=== PATIENT | male | born 1950 | race Caucasian/White ===

== ENCOUNTER → 2019-11-08 11:20 | Outpatient (CLI) | payer MEDICARE, SELFPAY ==
--- NOTE | ~2019-11-08 | US_ITS ---
US thyroid INDICATION: History of thyroid cancer status post thyroidectomy TECHNIQUE: Real-time sonographic images of the thyroid gland were obtained. COMPARISON: No prior studies for comparison. FINDINGS: The right and left thyroid lobes are surgically absent. No abnormal masses or fluid collect ions are identified in the thyroid bed. IMPRESSION: 1. Unremarkable ultrasound of the thyroid bed post thyroidectomy. No residual/recurrent masses. Reviewed, dictated and finalized at location A. 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 Unremarkable ultrasound of the thyroid bed post thyroidectomy. No residual/ recurrent masses.
== END ==
PROVIDERS: PCP Internal Medicine; Visit Provider Internal Medicine Endocrinology, Diabetes & Metabolism
DX: Z85.850 Personal history of malignant neoplasm of thyroid (principal)
CPT/HCPCS: 76536

== ENCOUNTER → 2020-08-03 09:21 | Outpatient (CLI) | payer MEDICARE, SELFPAY ==
--- NOTE | ~2020-08-03 | US_ITS ---
EXAMINATION: US scrotum doppler EXAM DATE: 08/03/2020 10:06 INDICATION: Male hypogonadism . TECHNIQUE: Multiple grayscale and Doppler images of the testicles and scrotum were obtained bilateral ly. There is no prior study for comparison. FINDINGS: Right testicle measures 4.3 x 2.2 x 3.2 cm and is morphologically normal. Low resistance Doppler kenyatta w confirmed. Small epididymal cyst. Trace hydrocele. Left testicle measures 4.1 x 2.1 x 2.9 cm and is morphologically normal. Low resistance Doppler flow confirmed. Small epididymal cysts. Trace hydrocele. IMPRESSION: 1. Trace bilateral hydroceles. Reviewed, dictated and finalized at location A. 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
--- NOTE | ~2020-08-03 | US_ITS ---
EXAMINATION: US right upper quadrant EXAM DATE: 08/03/2020 10:06 INDICATION: Hyperbilirubinemia. TECHNIQUE: Multiple grayscale and Doppler images of the abdomen right upper quadrant were obtained (wilmer y a technologist who performed the scan) and subsequently reviewed. There is no prior study for coretta obrien. FINDINGS: The pancreatic head and body are normal in appearance. The pancreatic tail is not visualized. The l iver has normal echogenicity and contour. There are no focal liver lesions identified. There is no evidence of intrahepatic biliary duct dilation. Portal venous flow was seen in the hepatopedal, nor mal direction and has normal Doppler waveform. No right-sided hydronephrosis. Common bile duct measures 4 mm, which is normal. The gallbladder wall is normal in thickness, with ex pected amount of distention. No sonographic evidence of pericholecystic fluid. There is no cholelit hiases. Technologist performing exam reports patient did not demonstrate sonographic Luna's sign. Please note that this sign is less reliable in patients who have received pain medication. IMPRESSION: 1. Unremarkable abdominal ultrasound exam. Reviewed, dictated and finalized at location A. 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
== END ==
PROVIDERS: PCP Internal Medicine; Visit Provider Internal Medicine Endocrinology, Diabetes & Metabolism
DX: E80.6 Other disorders of bilirubin metabolism (principal); E29.1 Testicular hypofunction; N43.3 Hydrocele, unspecified; N50.3 Cyst of epididymis
CPT/HCPCS: 76705; 76870; 93976

== ENCOUNTER → 2021-01-26 15:43 | Outpatient (CLI) | payer MEDICARE, SELFPAY ==
--- NOTE | ~2021-01-26 | US_ITS ---
US thyroid 01/26/2021 15:55 Indication: Postop hypothyroidism Procedure: High-resolution ultrasound of the thyroid bed Comparison: 11/08/2019 Findings: There is normal heterogeneous soft tissue in the thyroid fossa without discrete mass or flu id collection. Impression: 1: Normal ultrasound of the thyroid bed without discrete mass. Reviewed, dictated and finalized at location A. Impression: 1: Normal ultrasound of the thyroid bed without discrete mass.
== END ==
PROVIDERS: PCP Internal Medicine; Visit Provider Internal Medicine Endocrinology, Diabetes & Metabolism
DX: E89.0 Postprocedural hypothyroidism (principal)
CPT/HCPCS: 76536

== ENCOUNTER 2022-04-18 01:29 | Day surgery (SDC) | payer MEDICARE, SELFPAY ==
[2022-03-31 09:10] VITALS: BMI 33.5
[2022-04-18 07:13] VITALS: BP 144/84; PULSE 70; RESP 20; TEMP 36.3; O2SAT 98
--- NOTE | 2022-04-18 07:19 | PM.IMHP ---
H&P: HPI History of Present Illness Date/Time: 04/18/22 07:19 Chief Complaint: History of colon polyps. Narrative: This is a 71-year-old white male patient presents for screening colonoscopy. Patient has a history of prior colon polyps on several occasions. Most recent colonoscopy with polypectomy 2015. Patient presents today for follow-up exam. He reports his current weight appetite bowel movements are normal. He denies abdominal pain. Patient has had no bleeding. Family history is noncontributory. Review of Systems Review of Systems: Review of systems noncontributory. [facility] Past Medical History Medical History Pure hypercholesterolemia Family History Family History Mother Patient's mother is Family history of diabetes mellitus in first degree relative Father Patient's father is Sibling Patient's sister is Other Family history of cardiovascular disease Family history of malignant neoplasm Social History Social History Smoking packs per day: 1 Smoking cigarettes per day: 20.0 Years smoked: 5 Smoking pack-years: 5.00 Smoking status: Former smoker Tobacco type: cigarettes Second hand tobacco smoke exposure: No Smoking end date: 09/03/71 Alcohol intake: current Alcohol use details: rare Substance use: never Substance use type: does not use Living arrangements: with family Spiritual care concerns: No Meds Home Medications and Allergies Home Medications Medication Instructions Recorded Confirmed Type aspirin 81 mg tablet,delayed 81 mg PO DAILY 08/07/19 03/31/22 History release (Adult Low Dose Aspirin) atorvastatin 80 mg tablet 80 mg PO DAILY 08/07/19 03/31/22 History cetirizine 10 mg tablet (Zyrtec) 5 mg PO DAILY PRN Sinus Symptoms 08/07/19 03/31/22 History ferrous sulfate 142 mg (45 mg 142 mg PO DAILY 08/07/19 03/31/22 History iron) tablet,extended release (Slow Fe) levetiracetam 500 mg tablet 500 mg PO Q12H 08/07/19 04/18/22 History (Keppra) amlodipine 10 mg tablet 10 mg PO DAILY 08/11/19 03/31/22 History testosterone 1.62 % (40.5 mg/2.5 2 packet topical DAILY 08/25/20 03/31/22 History gram) transdermal gel packet metformin 500 mg tablet,extended 500 mg PO DAILY 02/21/21 03/31/22 History release 24 hr levothyroxine 200 mcg tablet 200 mcg PO DAILY #90 tabs 08/24/21 04/18/22 Rx pantoprazole 40 mg tablet,delayed 40 mg PO QAM #90 tabs 03/18/22 03/31/22 Rx release (Protonix) metoprolol succinate 50 mg 50 mg PO DAILY 03/31/22 04/18/22 History tablet,extended release 24 hr Allergies Allergy/AdvReac Type Severity Reaction Status Date / Time No Known Allergies Allergy Verified 04/18/22 07:11 Vital Signs Vital Signs - 24 hr 04/18/22 07:13 Temperature 97.4 F L Pulse Rate 70 Respiratory Rate 20 Blood Pressure 144/84 H Pulse Oximetry 98 Oxygen Delivery Room Air Exam Narrative: Physical exam reveals patient to be alert. Vital signs stable. HEENT exam is unremarkable. Patient is anicteric. Lungs are clear to auscultation and percussion. Heart is without murmur or extra sounds. Abdomen bowel sounds are suppressant soft nontender with no organomegaly. Digital external rectal exam is normal. Assessment and Plan Assessment and plan (1) History of colon polyps: Code(s): Z86.010 - Personal history of colonic polyps Status: Acute Assessment and Plan: Patient has a history of adenomatous colon polyps removed from the colon in the past on several occasions. Plan is for surveillance colonoscopy now. Consider this a 5 year intervals in the future.
[2022-04-18] MEDS: LACTATED RINGERS 1,000 ML 150 ML IV CONT (07:24)
--- NOTE | 2022-04-18 07:28 | WPDANESEPPF ---
Anes - Initial Pre Proc Eval Procedure: Operation Date: 04/18/22 08:30 Proposed Procedures p Screening Colonoscopy - Reid Jenkins MD Date/Time: 04/18/22 07:28 Surgeon: Reid Jenkins MD Pre Op Diagnosis: hx colon polyps Patient Data Age: 71 Gender: M Height: 1.8 m Weight: 108.8 kg Last Vital Signs Temp 97.4 F L 04/18/22 07:13 Pulse 70 04/18/22 07:13 Resp 20 04/18/22 07:13 BP 144/84 H 04/18/22 07:13 Pulse Ox 98 04/18/22 07:13 O2 Del Method Room Air 04/18/22 07:13 Allergies Allergy/AdvReac Type Severity Reaction Status Date / Time No Known Allergies Allergy Verified 04/18/22 07:11 Home Medications Medication Instructions Recorded Confirmed Type aspirin 81 mg tablet,delayed 81 mg PO DAILY 08/07/19 03/31/22 History release (Adult Low Dose Aspirin) atorvastatin 80 mg tablet 80 mg PO DAILY 08/07/19 03/31/22 History cetirizine 10 mg tablet (Zyrtec) 5 mg PO DAILY PRN Sinus Symptoms 08/07/19 03/31/22 History ferrous sulfate 142 mg (45 mg 142 mg PO DAILY 08/07/19 03/31/22 History iron) tablet,extended release (Slow Fe) levetiracetam 500 mg tablet 500 mg PO Q12H 08/07/19 04/18/22 History (Keppra) amlodipine 10 mg tablet 10 mg PO DAILY 08/11/19 03/31/22 History testosterone 1.62 % (40.5 mg/2.5 2 packet topical DAILY 08/25/20 03/31/22 History gram) transdermal gel packet metformin 500 mg tablet,extended 500 mg PO DAILY 02/21/21 03/31/22 History release 24 hr levothyroxine 200 mcg tablet 200 mcg PO DAILY #90 tabs 08/24/21 04/18/22 Rx pantoprazole 40 mg tablet,delayed 40 mg PO QAM #90 tabs 03/18/22 03/31/22 Rx release (Protonix) metoprolol succinate 50 mg 50 mg PO DAILY 03/31/22 04/18/22 History tablet,extended release 24 hr Patient hx anesthesia problems: none Family hx anesthesia problems: none Results Review: All pre-operative results and documents have been reviewed as part of the pre-operative evaluation. PMFSH Past Medical History Medical History Pure hypercholesterolemia Family History Family History Mother Patient's mother is Family history of diabetes mellitus in first degree relative Father Patient's father is Sibling Patient's sister is Other Family history of cardiovascular disease Family history of malignant neoplasm Social History Social History Smoking packs per day: 1 Smoking cigarettes per day: 20.0 Years smoked: 5 Smoking pack-years: 5.00 Smoking status: Former smoker Tobacco type: cigarettes Second hand tobacco smoke exposure: No Smoking end date: 09/03/71 Alcohol intake: current Alcohol use details: rare Substance use: never Substance use type: does not use Living arrangements: with family Spiritual care concerns: No Anes - Eval Final PreProcedure Day of Procedure 04/18/22 07:28 Patient weight: obese Heart: irregular rhythm Lungs: clear to auscultation Airway: Mallampati scale class II Neurological: alert and oriented Last oral intake: >/= 8 hours ASA classification: III Emergent: no Anesthetic plan: proceed Anesthesia type and monitoring: general GIVS and standard monitoring Results Review: All pre-operative results and documents have been reviewed as part of the pre-operative evaluation. Informed Consent: The patient's anesthetic plan and its attendant risks and benefits were discussed with the patient/family/POA. Questions were solicited and answers provided to the satisfaction of the patient/family/POA.
[2022-04-18 07:35] LABS: Glucose Point of Care 122 mg/dl (65-105)
[2022-04-18 07:58] VITALS: BP 127/72; PULSE 68; RESP 20; O2SAT 96
[2022-04-18 08:08] VITALS: BP 129/76; PULSE 60; RESP 20; O2SAT 97
[2022-04-18 08:18] VITALS: BP 134/84; PULSE 56; RESP 20; O2SAT 97
== END 2022-04-18 08:30 | disposition home or self-care (01) ==
PROVIDERS: PCP Internal Medicine; Visit Provider Internal Medicine Gastroenterology
PROC: 0DJD8ZZ Inspection of Lower Intestinal Tract, Via Natural or Artificial Opening Endoscopic (ICD-10-PCS; CPT 45378; principal; 2022-04-18 08:30)
DX: Z12.11 Encounter for screening for malignant neoplasm of colon (principal); D12.2 Benign neoplasm of ascending colon; K57.30 Diverticulosis of large intestine without perforation or abscess without bleeding; K64.8 Other hemorrhoids; Z79.82 Long term (current) use of aspirin; Z79.84 Long term (current) use of oral hypoglycemic drugs; E78.00 Pure hypercholesterolemia, unspecified; E03.9 Hypothyroidism, unspecified; E66.9 Obesity, unspecified; Z68.33 Body mass index [BMI] 33.0-33.9, adult; Z87.891 Personal history of nicotine dependence
CPT/HCPCS: 45385; 82948; 88305; J2704; J7120

== ENCOUNTER 2023-11-27 14:47 | Outpatient (CLI) | payer MEDICARE, SELFPAY ==
--- NOTE | 2023-11-27 14:54 | ECG_ITS ---
Measurements Intervals [place] Rate: 72 P: SC: 0 QRS: 28 QRSD: 108 T: 68 QT: 421 QTc: 462 Interpretive Statements ATRIAL FIBRILLATION VENTRICULAR PREMATURE COMPLEX BORDERLINE ST-T WAVE ABNORMALITY- ANTEROLAT/HIGH LAT LEADS BASELINE ARTIFACT- III, V1 ABNORMAL ECG COMPARED TO ECG 03/03/2019 09:31:23 NO SIGNIFICANT CHANGES Electronically Signed On 11-27-2023 16:09:15 CDT by Pablo Gupta D.O.
== END 2023-11-27 14:48 | disposition home or self-care (01) ==
PROVIDERS: PCP Internal Medicine; Visit Provider Internal Medicine
DX: Z01.810 Encounter for preprocedural cardiovascular examination (principal); R94.31 Abnormal electrocardiogram [ECG] [EKG]
CPT/HCPCS: 93005

== ENCOUNTER 2024-01-02 12:22 | Outpatient (CLI) | payer MEDICARE, SELFPAY ==
--- NOTE | ~2024-01-02 | US_ITS ---
EXAMINATION: US carotid duplex BI DATE: 01/02/2024 13:02 INDICATION: History of epilepsy TECHNIQUE: Grayscale, color Doppler, and pulsed Doppler images of the cervical carotid arteries were obtained. The degree of vessel stenosis is placed in one of the following categories: normal, <50%, 5 0-69%, >=70% but less than near-occlusion, near-occlusion, or total occlusion. Note that percent sten osis relative to normal distal artery lumen diameter is indirectly measured from velocity measurement s as described by Vicente, et al. Radiology 2003; 229:340-346. Notes: Normal: Peak systolic velocity <125 centimeters/sec and no plaque <50%. Peak systolic velocity <125 ( EDV <40; ICA/CCA PSV ratio <2.0; used these factors only a tandem lesions or low cardiac output or co ntralateral disease) 50-69 %: PSV 125-230 (EDV 40-100; ratio 2-4) >= 70% but less than near occlusion: PSV greater than 230 (EDV > 100; ratio> 4.0) Near Occlusion: PSV that is variable; markedly narrowed lumen Occlusion: Absent flow on color/spectral Doppler and no lumen on lawrence scale. COMPARISON: None. FINDINGS: RIGHT: The right common carotid artery (CCA) peak systolic velocity (PSV) is 94 cm/s. The right internal car otid artery (ICA) PSV is 162 cm/s. The right ICA end-diastolic velocity (EDV) is 27 cm/s. The right I CA/CCA PSV ratio is 1.7. The external carotid artery (ECA) PSV is 94 cm/s. There is antegrade flow in the right vertebral artery. LEFT: The left CCA PSV is 55 cm/s. The left ICA PSV is 56 cm/s. The left ICA EDV is 15 cm/s. The left ICA/C CA PSV ratio is 1. The ECA PSV is 43 cm/s. There is antegrade flow in the left vertebral artery. IMPRESSION: 1. 50-69% stenosis in the right internal carotid artery by sonographic criteria. 2. Less than 50% stenosis in the left internal carotid artery by sonographic criteria. Reviewed, dictated and finalized at location B. IMPRESSION: 1. 50-69% stenosis in the right internal carotid artery by sonographic criteria . 2. Less than 50% stenosis in the left internal carotid artery by sonographic cr iteria.
== END 2024-01-02 12:23 | disposition home or self-care (01) ==
LOC: ANHIMG 12:25
PROVIDERS: PCP Internal Medicine; Visit Provider Psychiatry & Neurology Neurology
DX: Z86.73 Personal history of transient ischemic attack (TIA), and cerebral infarction without residual deficits (principal); E11.9 Type 2 diabetes mellitus without complications; G40.909 Epilepsy, unspecified, not intractable, without status epilepticus; I25.10 Atherosclerotic heart disease of native coronary artery without angina pectoris; I48.91 Unspecified atrial fibrillation; I63.9 Cerebral infarction, unspecified; Z95.1 Presence of aortocoronary bypass graft; I65.23 Occlusion and stenosis of bilateral carotid arteries
CPT/HCPCS: 93880

== ENCOUNTER 2024-07-02 06:49 | Emergency (ER) | payer MEDICARE, SELFPAY ==
[2024-07-02 06:55] VITALS: BP 160/98; PULSE 78; RESP 18; TEMP 36.6; O2SAT 96
--- NOTE | 2024-07-02 07:02 | PC.NURSE ---
Nose clamp applied to pt
[2024-07-02 07:29] LABS: Basophils Percent Auto 0.5 % (0.2-1.2); Eosinophils Absolute Auto 0.4 K/mm3 (0-0.3); Eosinophils Percent Auto 4.1 % (0-4.4); Hematocrit 38.2 % (42.0-52.0); Hemoglobin 12.6 g/dL (14.0-18.0); Immature Granulocyte Absolute 0.04 K/mm3 (0.00-0.031); Immature Granulocyte Percent A 0.5 % (0-0.5); Lymphocytes Absolute Auto 1.99 K/mm3 (0.9-3.2); Lymphocytes Percent Auto 22.6 % (18.3-44.2); Mean Corpuscular Hemoglobin 30.3 pg (26-34); Mean Corpuscular Volume 91.8 fl (80-100); Mean Platelet Volume 10.5 fl (7.4-10.4); Monocytes Percent Auto 10.8 % (2.6-8.5); Neutrophils Absolute Auto 5.4 K/mm3 (1.3-6.7); Neutrophils Percent Auto 61.5 % (45.5-73.1); Platelet Count Result 212 k/mm3 (150-375); Red Blood Count 4.16 M/mm3 (4.6-6.20); Red Cell Distribution Width 14.8 % (11.5-14.5); White Blood Count 8.8 K/mm3 (4.5-10.0)
--- NOTE | 2024-07-02 07:46 | ED_ITS ---
HPI - General Adult General Chief complaint: Epistaxis Stated complaint: nosebleed; off and on since Sunday; mainly at nigh Time Seen by Provider: 07/02/24 07:02 History of Present Illness HPI narrative: 73-year-old male presenting to the emergency department for evaluation for recurrent epistaxis from the left nostril. Patient is not on any blood thinners but does report a prior history epistaxis. Patient has previous had follow-up with ENT and had a prior cauterization. Patient states this was many years ago and does not have a current ENT physician. Patient states that since Sunday night the bleeding has been occurring intermittently. Patient denies any bleeding during the day. Bleeding last night was more significant so patient presented to the ED for evaluation. Related Data Home Medications Medication Instructions Recorded Confirmed aspirin 81 mg tablet,delayed 81 mg PO DAILY 08/07/19 12/12/23 release (Adult Low Dose Aspirin) atorvastatin 80 mg tablet 80 mg PO DAILY 08/07/19 12/12/23 cetirizine 10 mg tablet (Zyrtec) 5 mg PO DAILY PRN Sinus Symptoms 08/07/19 12/12/23 ferrous sulfate 142 mg (45 mg 142 mg PO DAILY 08/07/19 12/12/23 iron) tablet,extended release (Slow Fe) levetiracetam 500 mg tablet 500 mg PO Q12H 08/07/19 12/12/23 (Keppra) amlodipine 10 mg tablet 10 mg PO DAILY 08/11/19 12/12/23 metformin 500 mg tablet,extended 500 mg PO DAILY 02/21/21 12/12/23 release 24 hr metoprolol succinate 50 mg 50 mg PO DAILY 03/31/22 12/12/23 tablet,extended release 24 hr Allergies Allergy/AdvReac Type Severity Reaction Status Date / Time No Known Allergies Allergy Verified 07/02/24 07:19 Review of Systems Review of Systems: All systems reviewed & are unremarkable except as noted in HPI and below PMFSH Past Medical History Medical History (Updated 07/02/24 @ 08:54 by Trung Pepper MD) Left-sided cerebrovascular accident (CVA) Pure hypercholesterolemia Seizure disorder Family History Family History (Reviewed 12/13/23 @ 14:16 by Tommy Trevizo [facility]) Mother Patient's mother is Family history of diabetes mellitus in first degree relative Father Patient's father is Sibling Patient's sister is Other Family history of cardiovascular disease Family history of malignant neoplasm Social History Social History (Updated 12/13/23 @ 14:16 by Tommy Trevizo [facility]) Smoking packs per day: 1 Smoking cigarettes per day: 20.0 Years smoked: 5 Smoking pack-years: 5.00 Smoking status: Former smoker Tobacco type: cigarettes Second hand tobacco smoke exposure: No Smoking end date: 09/03/71 Alcohol intake: current Alcohol use details: rare Substance use: never Substance use type: does not use Do You Feel Safe in your Home?: Yes Lack of Transportation: No Lack of Food: Never True Current Housing: I Have Housing Concerned About Future Housing: No Difficulty Paying Gas/Electric Bills: No Difficulty Paying for Meds: No Currently Unemployed: No Education: High School Diploma/GED Difficulty w/ Childcare or Family Care: No Living arrangements: with family Spiritual care concerns: No Exam Narrative: APPEARANCE: Well appearing, no pain, no distress, well-nourished. HEAD: normocephalic, atraumatic. EYES: PERRLA/EOMI, conjunctivae clear. NOSE: Bleeding from left EARS:TMS clear with good light reflex. THROAT: Pharynx clear, no exudate. NECK: Supple. No adenopathy, no masses. RESPIRATORY: Airway patent, respirations nonlabored. Clear to auscultation bilaterally, no rales, rhonchi, wheezing. CARDIOVASCULAR: Regular rate and rhythm without murmurs rubs or gallops. ABDOMINAL: Soft, nontender, nondistended, normal bowel sounds MUSCULOSKELETAL: Moves all extremities. Strength/ROM intact, No edema, No calf tenderness. NEURO: Alert. Cranial nerves II through XII intact. Good gait. Good coordination SKIN: Warm, dry. Normal Color PSYCHIATRIC: Normal affect/mood. Course Course Emergency Course: Bleeding resolved and patient was discharged to home with close ENT follow-up. Vital Signs Vital signs: Vital Signs Temperature 97.9 F 07/02/24 06:55 Pulse Rate 78 07/02/24 06:55 Respiratory Rate 18 07/02/24 06:55 Blood Pressure 160/98 H 07/02/24 06:55 Pulse Oximetry 96 07/02/24 06:55 Oxygen Delivery Room Air 07/02/24 06:55 Temperature 98.3 F 07/02/24 09:01 Pulse Rate 76 07/02/24 09:01 Respiratory Rate 18 07/02/24 09:01 Blood Pressure 130/69 07/02/24 09:01 Pulse Oximetry 99 07/02/24 09:01 Oxygen Delivery Room Air 07/02/24 06:55 Procedures Epistaxis Control left: Epistaxis Control Time: 08:15 Time Out Performed: Yes Nose Prepped With: oxymetazoline Direct Inspection: yes Clots Removed by: blowing nose Cautery Used: none Patient Tolerated Procedure: well and no complications Medical Decision Making MDM Narrative Medical decision making narrative: 73-year-old male present to the emergency department for evaluation for epistaxis. Epistaxis was resolved using nasal clamp. Left naris was packed with Afrin-soaked gauze and bleeding remained stopped. Patient was observed for 20 minutes after removal of the Afrin gauze and hemostasis was still achieved. Patient and family are comfortable with plan to attempt hemostasis at home using the nasal clamp as needed. Patient does have prior history of having a rhino rocket and prefers not to have this. Patient and family were comfortable the plan to return to the emergency department if the patient has any worsening symptoms. All questions concerns were addressed. Differential Diagnosis Differential Diagnosis: Elevated INR, thrombocytopenia, epistaxis Vital Signs Vital Signs: Vital Signs Temperature 97.9 F 07/02/24 06:55 Pulse Rate 78 07/02/24 06:55 Respiratory Rate 18 07/02/24 06:55 Blood Pressure 160/98 H 07/02/24 06:55 Pulse Oximetry 96 07/02/24 06:55 Oxygen Delivery Room Air 07/02/24 06:55 Temperature 98.3 F 07/02/24 09:01 Pulse Rate 76 07/02/24 09:01 Respiratory Rate 18 07/02/24 09:01 Blood Pressure 130/69 07/02/24 09:01 Pulse Oximetry 99 07/02/24 09:01 Oxygen Delivery Room Air 07/02/24 06:55 Lab Data Lab results reviewed: Yes I reviewed the patient's lab results. 07/02/24 07:24 Labs: Lab Results 07/02/24 Range/Units 07:24 WBC 8.8 (4.5-10.0) K/mm3 RBC 4.16 L (4.6-6.20) M/mm3 Hgb 12.6 L (14.0-18.0) g/dL Hct 38.2 L (42.0-52.0) % MCV 91.8 (80-100) fl MCH 30.3 (26-34) pg MCHC 33.0 (32-36) g/dl RDW 14.8 H (11.5-14.5) % Plt Count 212 (150-375) k/mm3 MPV 10.5 H (7.4-10.4) fl Immature Gran % (Auto) 0.5 (0-0.5) % Neut % (Auto) 61.5 (45.5-73.1) % Lymph % (Auto) 22.6 (18.3-44.2) % [place] % (Auto) 10.8 H (2.6-8.5) % Eos % (Auto) 4.1 (0-4.4) % Baso % (Auto) 0.5 (0.2-1.2) % Lymph # (Auto) 1.99 (0.9-3.2) K/mm3 [place] # (Auto) 1.0 H (0.1-0.6) K/mm3 Eos # (Auto) 0.4 H (0-0.3) K/mm3 Baso # (Auto) 0.0 (0.0-0.1) K/mm3 Abs Immat Gran (auto) 0.04 H (0.00-0.031) K/mm3 Absolute Neuts (auto) 5.4 (1.3-6.7) K/mm3 Absolute Nucleated RBC 0.000 (0.0-0.012) K/mm3 Nucleated RBC % 0.0 (0.0-0.2) % PT 14.8 H (11.1-14.7) Seconds INR 1.1 APTT 29.5 (22.3-36.8) Seconds Discharge Plan Discharge Clinical Impression: Epistaxis Patient Disposition: Home, Self-Care Condition: Stable Instructions: Antibiotic Form, Nosebleed (ED) Additional Instructions: Nasal clamp as needed for rebleeding. Place nasal clamp on nose for 15 minutes, repeat x3 until bleeding resolved. If bleeding does not resolve or bleeding is excessive to the point of concern then please call or return to the emergency department. Have close follow-up with ENT. Prescriptions: No Action metformin 500 mg tablet extended release 24 hr 500 mg PO DAILY aspirin [Adult Low Dose Aspirin] 81 mg tablet,delayed release (DR/EC) 81 mg PO DAILY atorvastatin 80 mg tablet 80 mg PO DAILY cetirizine [Zyrtec] 10 mg tablet 5 mg PO DAILY PRN (Reason: Sinus Symptoms) Slow Fe 142 mg (45 mg iron) tablet extended release 142 mg PO DAILY levetiracetam [Keppra] 500 mg tablet 500 mg PO Q12H amlodipine 10 mg tablet 10 mg PO DAILY levothyroxine 200 mcg tablet 200 mcg PO DAILY Qty: 90 0RF metoprolol succinate 50 mg tablet extended release 24 hr 50 mg PO DAILY pantoprazole [Protonix] 40 mg tablet,delayed release (DR/EC) 40 mg PO QAM Qty: 90 3RF Follow-up/Referrals: Willie Kolb MD [Physician] - Juan Hester DO [Primary Care Provider] -
[2024-07-02 07:58] LABS: INR 1.1; Prothrombin Time 14.8 Seconds (11.1-14.7)
[2024-07-02 07:59] LABS: Partial Thromboplastin Time 29.5 Seconds (22.3-36.8)
[2024-07-02] MEDS: OXYMETAZOLINE HCL 0.05% NAS 15 ML BTL (*BKC) 1 SPRAY NASAL (08:03)
[2024-07-02 09:01] VITALS: BP 130/69; PULSE 76; RESP 18; TEMP 36.8; O2SAT 99
== END 2024-07-02 09:03 | disposition home or self-care (01) ==
PROVIDERS: Emergency Provider Emergency Medicine; PCP Internal Medicine
DX: R04.0 Epistaxis (principal); E78.00 Pure hypercholesterolemia, unspecified; G40.909 Epilepsy, unspecified, not intractable, without status epilepticus; Z86.73 Personal history of transient ischemic attack (TIA), and cerebral infarction without residual deficits; Z87.891 Personal history of nicotine dependence; Z79.82 Long term (current) use of aspirin; Z79.84 Long term (current) use of oral hypoglycemic drugs; Z79.899 Other long term (current) drug therapy
CPT/HCPCS: 30901; 36415; 85025; 85610; 85730; 99283; A9270

== ENCOUNTER 2025-01-01 10:50 | Outpatient (CLI) | payer MEDICARE, SELFPAY ==
--- NOTE | ~2025-01-01 | US_ITS ---
EXAMINATION: US carotid duplex BI DATE: 01/01/2025 11:45 INDICATION: Cerebral infarction TECHNIQUE: Grayscale, color Doppler, and pulsed Doppler images of the cervical carotid arteries were obtained. The degree of vessel stenosis is placed in one of the following categories: normal, <50%, 5 0-69%, >=70% but less than near-occlusion, near-occlusion, or total occlusion. Note that percent sten osis relative to normal distal artery lumen diameter is indirectly measured from velocity measurement s as described by Vicente, et al. Radiology 2003; 229:340-346. Notes: Normal: Peak systolic velocity <125 centimeters/sec and no plaque <50%. Peak systolic velocity <125 ( EDV <40; ICA/CCA PSV ratio <2.0; used these factors only a tandem lesions or low cardiac output or co ntralateral disease) 50-69 %: PSV 125-230 (EDV 40-100; ratio 2-4) >= 70% but less than near occlusion: PSV greater than 230 (EDV > 100; ratio> 4.0) Near Occlusion: PSV that is variable; markedly narrowed lumen Occlusion: Absent flow on color/spectral Doppler and no lumen on lawrence scale. COMPARISON: None. FINDINGS: RIGHT: The right common carotid artery (CCA) peak systolic velocity (PSV) is 59 cm/s. The right internal car otid artery (ICA) PSV is 165 cm/s. The right ICA end-diastolic velocity (EDV) is 28 cm/s. The right I CA/CCA PSV ratio is 2.8. The external carotid artery (ECA) PSV is 81 cm/s. There is antegrade flow in the right vertebral artery. LEFT: The left CCA PSV is 58 cm/s. The left ICA PSV is 63 cm/s. The left ICA EDV is 22 cm/s. The left ICA/C CA PSV ratio is 1.1. The ECA PSV is 79 cm/s. There is antegrade flow in the left vertebral artery. IMPRESSION: 1. 50-69% stenosis in the right internal carotid artery by sonographic criteria. 2. Less than 50% stenosis in the left internal carotid artery by sonographic criteria. Reviewed, dictated and finalized at location A. IMPRESSION: 1. 50-69% stenosis in the right internal carotid artery by sonographic criteria . 2. Less than 50% stenosis in the left internal carotid artery by sonographic cr iteria.
--- OUTSIDE RECORDS SUMMARY | 2025-01-01 11:52 | XMS_ITS | Referral Summary ---
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 Unavailable [phone] Laurent Miranda MD [facility]available [facility] Unavailable [phone] Encounters Date Type Department Care Team Description 10/31/2024 11:30 AM [employer] Office Visit [facility] [address] [address] [address] [place] [address] Pablo Armendariz MD Permanent atrial fibrillation (HCC) (Primary Dx); Coronary artery disease involving hoonah coronary artery of hoonah heart without angina pectoris; Hx of CABG 10/13/2024 [facility] [address], [place] [address] Zaira Sommers MA from Last 3 Months Allergies No known active allergies Medications cetirizine (ZyrTEC) 10 mg tablet Take 1 tablet (10 mg total) by mouth daily as needed for allergies Active pantoprazole DR (PROTONIX) 40 mg EC tablet Take 1 tablet (40 mg total) by mouth daily Active B12 Active 1,000 mcg tablet,chewable Take 1 tablet by mouth daily 1 Active acetaminophen (TYLENOL) 325 mg tablet Take 2 tablets (650 mg total) by mouth every 4 (four) hours as needed for pain Active aspirin 81 mg enteric coated tablet Take 1 tablet (81 mg total) by mouth daily Active levothyroxine (SYNTHROID) 175 mcg tabletIndications: Postoperative hypothyroidism Take 1 tablet (175 mcg total) by mouth every morning 175 mcg every other day 90 tablet 1 4 Active levothyroxine (SYNTHROID) 200 mcg tabletIndications: Postoperative hypothyroidism Take 1 tablet (200 mcg total) by mouth mathematics instructor before breakfast 200 mcg every other day 90 tablet 1 4 Active levETIRAcetam (KEPPRA) 500 mg tabletIndications: Partial symptomatic epilepsy with complex partial seizures, not intractable, without status epilepticus (HCC) Take 1 tablet (500 mg total) by mouth 2 (two) times a day (COURTESY REFILL, PATIENT NEEDS TO COME INTO THE OFFICE FOR FURTHER REFILLS) 60 tablet 5 Active metoprolol XL (TOPROL-XL) 50 mg extended release tablet TAKE 1 TABLET BY MOUTH EVERY DAY 90 tablet 3 5 Active amLODIPine (NORVASC) 10 mg tablet TAKE 1 TABLET BY MOUTH EVERY DAY 90 tablet 3 5 Active metFORMIN XR (GLUCOPHAGE XR) 500 mg 24 hr tablet TAKE 1 TABLET BY MOUTH EVERY DAY WITH DINNER 90 tablet 1 5 Active ezetimibe (ZETIA) 10 mg tablet Take 1 tablet (10 mg total) by mouth daily 90 tablet 3 5 Active atorvastatin (LIPITOR) 80 mg tablet TAKE 1 TABLET BY MOUTH EVERY DAY 90 tablet 3 5 Active Active Problems Problem Noted Date Diagnosed Date Hypertension associated with type 2 diabetes bhavana enrique 07/17/2024 Assessment & Plan (07/18/2024 11:06 AM [employer]UR[employer]): Chronic problem. Controlled on current metoprolol XL 50mg daily, amlodipine 10mg daily. Hyperlipidemia associated with type 2 diabetes annalise barth 07/17/2024 Assessment & Plan (07/18/2024 11:06 AM [employer]URSING): Chronic problem. Currently taking Atorvastatin 80mg & Zetia 10mg. Last lipid panel: 05/13/24 LDL=49, TG=98. Hypogonadism in male 12/06/2023 Assessment & Plan (07/18/2024 11:10 AM [employer]URSING): Chronic problem. Testosterone replacement currently on hold d/t elevated PSA. Has appt w/his urologist (Dr Chang) 08/06/24. Being off the testosterone has caused increased fatigue. Assessment & Plan (12/06/2023 4:16 PM CDT): Chronic, stable Update H&H and PSA Continue AndroGel Type 2 diabetes mellitus wit h hyperglycemia, without long-term current use of insulin 05/31/2023 Assessment & Plan (07/18/2024 11:16 AM [employer]URSING): Chronic problem. A1c at goal/stable. 6.5% 05/13/24. Current medications: Metformin XR 500mg with dinner daily UTD on labs (see scanned media, completed 05/13/24) UTD on DM eye exam (11/19/23 no [facility]). Discussed with Pablo Culp: Strive for regular exercise (30min most days) and diet (get at least 4-5 servings of fruit and veggies daily, avoid processed foods, increase lean protein intake and decrease carb portions as well as fruit juices, regular soda & desserts). Watch carbs and simple sugars. Check the feet daily for skin breakdown and infection. Assessment & Plan (12/06/2023 4:16 PM CDT): Chronic, stable Continue metformin Assessment & Plan (05/31/2023 1:05 PM CDT): Hba1c goal under 7.0 Diet and exercise Continue Metformin History of thyroid cancer 05/31/2023 Assessment & Plan (07/18/2024 11:32 AM [employer]URSING): H/o papillary thyroid carcinoma with total thyroidectomy 03/07/94. Will check thyroglobulin level. Goal is to keep TSH around 1.0. Verified that he uses mychart. Aware to check results/results letter in [place]. Will contact by phone if needed. Assessment & Plan (05/31/2023 1:05 PM CDT): Monitor TG levels Keep TSH around 1.0 Hx of CABG 03/16/2022 Disturbances of vision, late effect of stroke Primary osteoarthritis of right knee 02/24/2021 Primary osteoarthritis of both knees 01/17/2021 Nonintractable epilepsy with complex partial sei zures 11/27/2018 Visual changes 03/07/2018 Hypothyroidism 01/30/2018 Assessment & Plan (07/18/2024 11:31 AM [employer]URSING): Chronic problem. Currently taking alternating days of levothyroxine 200mcg & 175mcg. Due to history of papillary thyroid cancer; will keep TSH around 1.0. Aware to take 1st thing in morning, 30-60 minutes before food/drink/other medications. Will update TFT today. Verified that he uses mychart. Aware to check results/results letter in [facility]. Will contact by phone if needed. Assessment & Plan (12/06/2023 4:15 PM CDT): Chronic, stable Continue levothyroxine, alternating 175 and 200 mcg every other day Assessment & Plan (05/31/2023 1:04 PM CDT): Thyroid function tests, including TSH and free T4 were requested Will adjust dose of Levothyroxine accordingly . If there is a need to make changes, will recheck levels in 2-3 months. Instructions to patient on taking medication properly : in the morning, on an empty stomach , 1 h part from food and/or other meds. 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 Symptomatic anemia 01/14/2018 Overview (01/14/2018): Added automatically from request for surgery [id number] Dizziness 11/27/2017 Assessment & Plan (11/27/2017 11:40 AM CDT): Exertional lightheadedness. Cause is unclear. Will obtain 24 hour Holter and Lexiscan. It is possible that finasteride is contributing. Hyperlipidemia with target l ow density lipoprotein (LDL) cholesterol less than 70 mg/dL 01/17/2014 Overview (12/07/2016): HYPERLIPIDEMIA NEC/NOS Assessment & Plan (08/19/2021 6:13 PM [employer]): Continue high-intensity statin therapy, atorvastatin 80 mg daily. Assessment & Plan (08/13/2020 11:40 AM [employer]URSING): Continue high-intensity statin therapy. Assessment & Plan (06/13/2019 5:58 PM CDT): On chronic lipid lowering therapy with good control. No changes made. Assessment & Plan (11/14/2018 11:44 AM CDT): On chronic lipid lowering therapy with good control. No changes made. Assessment & Plan (04/16/2018 1:36 PM CDT): On chronic lipid lowering therapy with good control. No changes made. Assessment & Plan (02/25/2018 11:31 AM CDT): On chronic lipid lowering therapy with good control. No changes made. Assessment & Plan (11/27/2017 11:39 AM CDT): Lipids checked today are reviewed. On chronic lipid lowering therapy with good control. No changes made. Atrial fibrillation 01/17/2014 Overview (01/30/2018): ATRIAL FIBRILLATION Assessment & Plan (08/19/2021 6:12 PM [employer]): Chronic atrial fibrillation, rate controlled. He is not anticoagulated because of previous bleeding and is left atrial appendage has been removed. Assessment & Plan (08/13/2020 11:39 AM [employer]URSING): Rate controlled. His left atrial appendage was ligated, so he is not on anticoagulation in light of his history of iron deficiency anemia. Assessment & Plan (06/13/2019 5:58 PM CDT): Rate controlled. He is not anticoagulated but has had his appendage ligated. Assessment & Plan (11/14/2018 11:43 AM CDT): Rate controlled. He is not anticoagulated because of a history of ulcer disease. Left atrial appendage was removed. Assessment & Plan (04/16/2018 1:36 PM CDT): Rate controlled. He is not anticoagulated because of a history of GI bleeds. His left atrial appendage was excised at the time of his bypass surgery in January 2018, so he should be at low risk of cardioembolic phenomena. I am not planning to resume anticoagulation. Assessment & Plan (02/25/2018 11:30 AM CDT): Rate today is a little fast. This should improve on low-dose metoprolol. Will hold off on anticoagulation until we are sure that his ulcer has healed. His left atrial appendage was surgically removed. Assessment & Plan (11/27/2017 11:38 AM CDT): Heart rate is controlled, and he is anticoagulated. Will obtain a 24 hour Holter to assess heart rate control and to evaluate his Hypertension 01/17/2014 Overview (12/07/2016): HYPERTENSION NOS Assessment & Plan (08/19/2021 6:13 PM [employer]): Blood pressure is normal on his current regimen of amlodipine 10 mg daily and metoprolol succinate 50 mg daily, which he should continue. Assessment & Plan (08/13/2020 11:39 AM [employer]URSING): Blood pressure is adequately controlled on current regimen. No change was made. Assessment & Plan (06/13/2019 5:57 PM CDT): Blood pressure is adequately controlled on current regimen. No change was made. Assessment & Plan (11/14/2018 11:43 AM CDT): Blood pressure is adequately controlled on current regimen. No change was made. Assessment & Plan (04/16/2018 1:33 PM CDT): Blood pressure is adequately controlled on current regimen. Adjustment to antihypertensive therapy made last time appears to have been effective. No change was made. Assessment & Plan (02/25/2018 11:30 AM CDT): Blood pressure is not ideally controlled. He is no longer on diltiazem. I suspect it may have been making him too bradycardic. Will switch from carvedilol to metoprolol succinate 25 mg daily. He is going to get a blood pressure cuff to monitor his readings. He is to call me in a week with these. Assessment & Plan (11/27/2017 11:39 AM CDT): Blood pressure is adequately controlled on current regimen. No change was made. He has a mild orthostatic drop in blood pressure which is consistent with being on finasteride. Coronary artery disease invo lving hoonah coronary artery of hoonah heart without angina pectoris 01/17/2014 Overview (12/07/2016): Coronary arteriosclerosis Assessment & Plan (08/19/2021 6:12 PM [employer]): No symptoms of myocardial ischemia. Continue aspirin and metoprolol succinate 50 mg daily. Assessment & Plan (08/13/2020 11:38 AM [employer]URSING): No symptoms of chest discomfort. If he is going to be having knee replacement surgery we should get a Lexiscan prior. He will let me know. Continue aspirin. Assessment & Plan (06/13/2019 5:57 PM CDT): No symptoms of myocardial ischemia. Continue aspirin. Assessment & Plan (11/14/2018 11:42 AM CDT): No symptoms of myocardial ischemia. Continue aspirin. Assessment & Plan (04/16/2018 1:33 PM CDT): Asymptomatic following coronary artery bypass grafting. Continue aspirin. As long as aspirin does not need to be interrupted, I am comfortable with his proceeding with the uro lift procedure. Assessment & Plan (02/25/2018 11:29 AM CDT): Asymptomatic following coronary artery bypass grafting. Continue aspirin. Assessment & Plan (11/27/2017 11:38 AM CDT): No symptoms of myocardial ischemia, but his exertional lightheadedness is of concern. Will obtain a pharmacologic stress test, which is also indicated given his upcoming prostate surgery and knee surgery. BPH (benign prostatic hyperplasia) 09/18/2013 Transient neurological symptoms Gastrointestinal hemorrhage Resolved Problems Problem Noted Date Diagnosed Date Resolved Date DVT (deep venous thrombosis) 01/28/2018 01/30/2018 Assessment & Plan (01/28/2018 8:24 AM CDT): duplex positive outside hospital. Duplex negative at this institution. Filter on hold for now. Consider evaluation for pulmonary embolus once acute kidney injury improves. Hold systemic anticoagulation (GI bleeding precludes this) Immunizations Immunization Administration Dates Next Due Moderna SARS-CoV-2 Monovalent Vaccination (12+ Y RS) 12/25/2020 Social History Tobacco Use Types Packs/Day Years Used Date Smoking Tobacco: Former Cigarettes Q uit: 1973 Smokeless Tobacco: Never Alcohol Use Standard Drinks/Week Comments Yes 0 (1 standard drink = 0.6 oz pur e alcohol) beer occasionally AUDIT-C Answer Date Recorded Q1: How often do you have a drink containing alc ohol? 2-4 times a month 01/10/2022 Q2: How many drinks containi ng alcohol do you have on a typical day when you are drinking? 3 or 4 01/10/2022 Q3: How often do you have si x or more drinks on one occasion? Less than monthly 01/10/2022 Sex and Gender Information Value Date Recorded Sex Assigned at Not on file Legal Sex Male 11:20 AM [employer] Gender Identity Not on file Sexual Orientation Not on file Last Filed Vital Signs Vital Sign Reading Time Taken Comments Blood Pressure 122/68 10/31/2024 11:27 AM [employer] Pulse 73 10/31/2024 11:27 AM [employer] Temperature 36.8 C (98.2 F) 03/22/2021 11:38 AM CDT Respiratory Rate 18 12/06/2023 11:4 1 AM CDT Oxygen Saturation 96% 10/31/2024 11: 27 AM [employer] Inhaled Oxygen Concentration - - Weight 108.6 kg (239 lb 6.4 oz) 025 11:27 AM [employer] Height 180.3 cm (5' 11 ) 10/31/2024 11: 27 AM [employer] Body Mass Index 33.39 10/31/2024 11:27 AM [employer] Plan of Treatment Not on file Medical Devices Implanted Type Area Print Controller Device Identifier Shelf Expiration Date Model / Serial / Lot [employer] [id number] Attune S+ Cement Fix Bearing Knee 7 Baseplate Tibial - [id number] Implanted:Qty: 1 on 03/21/2021 by Delroy Pyle MD at [facility] Right: Knee [employer] 01/31/2031 [id number] / / [id number] [employer] [id number] Attune Cemented Posterior Stabilize Knee Right 7 Component - [id number] Implanted:Qty: 1 on 03/21/2021 by Delroy Pyle MD at [facility] Right: Knee [employer] 12/31/2030 [id number] / / [id number] [employer] 6195-1-001 Cement Bone Simplex Gentamicin High Viscosity 40gm - [id number] Implanted:Qty: 1 on 03/21/2021 by Delroy Pyle MD at [facility] Right: Knee [employer] 06/02/2022 6195-1-001 / / [id number] [employer] 6195-1-001 Cement Bone Simplex Gentamicin High Viscosity 40gm - [id number] Implanted:Qty: 1 on 03/21/2021 by Delroy Pyle MD at [facility] Right: Knee [employer] 12/31/2021 6195-1-001 / / [id number] [employer] [id number] Attune 7mm Posterior Stabilize Fix Bearing Knee 7 Insert Tibial - [id number] Implanted:Qty: 1 on 03/21/2021 by Delroy Pyle MD at [facility] Right: Knee [employer] 08/02/2022 [id number] / / [id number] Procedures Procedure Name Priority Date/Time Associated Diagnosis Comments HEMOGLOBIN A1C Routine 05/13/2024 9:42 AM CDT LIPID PANEL Routine 05/13/2024 9:42 AM CDT ALBUMIN CREATININE RATIO, URINE Routine 05/13/2024 9:42 AM CDT COMPREHENSIVE METABOLIC PANEL Routine 05/04/2024 9:42 AM CDT PSA SCREEN Routine 12/06/2023 12:23 PM CDT Nocturia DIABETES EYE EXAM Routine 11/19/2023 8:11 AM CDT from Last 3 Months or Most Recently Relevant to Health Maintenance Results * (ABNORMAL) Albumin Creatinine Ratio, Urine (05/13/2024 9:42 AM CDT) SCRIBED Creatinine, Urine 61 20 - 320 [facility] SCRIBED Microalbumin 7.8 NA - NA [facility] SCRIBED Microalb/Creat Ratio 128 <30 - NA [facility] Urine 05/13/2024 9:42 AM CDT us Historical Provider LAB URINE ORDERABLES Edit ed Result - Final [facility] * (ABNORMAL) Hemoglobin A1c (05/13/2024 9:42 AM CDT) SCRIBED Hemoglobin A1c 6.5 <5.7 - NA % [facility] Blood 05/13/2024 9:42 AM CDT Historical Provider MD LAB BLOOD ORDERABLES Edit ed Result - Final Performing Organization Address City/[facility]/ZIP Co de Phone Number [facility] * Lipid panel (05/13/2024 9:42 AM CDT) Pathologist [facility] SCRIBED Cholesterol, Total 113 <200 - NA [facility] S[facility]IBED HDL 46 >=40 - NA [facility] SCRIBED LDL 49 <100 - NA [facility] SCRIBED Triglycerides 98 <150 - NA [facility] Blood 05/13/2024 9:42 AM CDT [facility] Provider MD LAB BLOOD ORDERABLES Edit ed Result - Final Performing Organization Address [facility] Co de Phone Number [facility] * (ABNORMAL) Comprehensive metabolic panel (05/04/2024 9:42 AM CDT) SCRIBED Sodium 143 135 - 146 mmol/L [facility] SCRIBED Potassium 3.8 3.5 - 5.3 mmol/L [facility] SCRIBED Chloride 108 98 - 110 mmol/L [facility] SCRIBED Carbon Dioxide 29 20 - 32 mmol/L [facility] SCRIBED Urea Nitrogen (BUN) 20 7 - 25 mg/dl [facility] SCRIBED Creatinine 1.02 0.70 - 1.28 mg/dl [facility] SCRIBED Glucose 110(A) 65 - 99 mg/dl [facility] SCRIBED Calcium 9.1 8.6 - 10.3 mg/dl [facility] SCRIBED Bilirubin 1.6(A) 0.2 - 1.2 mg/dl [facility] SCRIBED Plasma Protein 7.2 6.1 - 8.1 g/dl [facility] SCRIBED Albumin 4.3 3.6 - 5.1 g/dl [facility] SCRIBED Alkaline Phosphatase 119 35 - 144 Units/L [facility] SCR[facility]ED Alanine Transaminase (ALT) 16 9 - 46 Units/L [facility] SCRIBED Aspartate Transaminase (AST) 13 10 - 35 Units/L [facility] SCRIBED eGFR in NonAfrican Cymro 78 >=60 - NA [facility] Blood 05/04/2024 9:42 AM CDT Historical Provider LAB BLOOD ORDERABLES Edit ed Result - Final Performing Organization Address [facility] Co de Phone Number [facility] * (ABNORMAL) PSA screen (12/06/2023 12:23 PM CDT) PSA-Total 11.50(H) <=6.20 ng/mL Comment: Interpretive Data AGE SEX REFERENCE INTERVAL 0 minutes-150 years Female None 0 minutes-49 years Male None 50-59 years Male 0-3.90 60-69 years Male 0-5.40 70-79 years Male 0-6.20 80-150 years Male 0-6.20 The Kevin PSA Total assay procedure was used. Results from different manufacturers or methods may not be comparable. Serial testing should be performed using the same method. Current interpretive data last revised 22. Blood 12/06/2023 12:2 3 PM CDT 12/06/2023 9:29 PM CDT Jayson Moreno MD LAB BLOOD ORDERABLES Final Resul t Performing Organization Address [facility] de Phone Number TASHI [id number] [address] Department [place] [address] * DIABETES EYE EXAM (11/19/2023 8:11 AM CDT) Historical [facility] Final Result from Last 3 Months or Most Recently Relevant to Health Maintenance Insurance [employer] MEDICARE MEDICARE MEDICARE [facility] MEDICARE [employer] MEDICARE Advance Directives For more information, please contact: [phone] * Full Code (Latest Code Status on File) Date Activated Date Inactivated Comments 03/21/2021 1:26 PM 03/22/2021 6:47 PM * Full Code Date Activated Date Inactivated Comments 01/26/2018 9:55 PM 02/01/2018 1:35 PM * Full Code Date Activated Date Inactivated Comments 01/15/2018 1:23 PM 01/17/2018 2:29 PM * Full Code Date Activated Date Inactivated Comments 01/14/2018 8:20 AM 01/15/2018 1:23 PM * Full Code Date Activated Date Inactivated Comments 01/02/2018 8:49 AM 01/07/2018 2:16 PM Care Teams Wire Wrapping Machine Operator Relationship Specialty Start Date End Date Beck Jacob MD [address] [facility] [address] [place] [address] PCP - General 12/01/16 Delroy Martinez MD [address] [facility] [address] [place] [address] Consulting Physician Neurology 01/16/18 Pablo Mendoza MD [address] [facility] [address] [address] [place] [address] Consulting Physician Thoracic Surgery 01/16/18 Clinic, Urology X. [address] [place] [address] Referring Physician 01/16/18 Laurent Miranda MD [address] [place] [address] Consulting Physician Pulmonary Disease 02/01/18 Delroy Pyle MD [address] [facility] [address] [place] [address] Surgeon Orthopedic Surgery 03/22/21
--- OUTSIDE RECORDS SUMMARY | 2025-01-01 11:52 | XMS_ITS | Clinical Summary ---
Author Organization [facility] Address [address] [place] [address] Care Team Providers Care Manager Multimedia Name Role Phone Beck [place] MD Primary Care Provider [phone] Delroy Martinez MD Unavailable [phone] Pablo Mendoza MD Unavailable [phone] Clinic, Urology X. Unavailable [phone] Laurent Miranda MD Unavailable [phone] Delroy Pyle MD Unavailable [phone] Allergies No known active allergies Medications cetirizine [...] 1 tablet (200 mcg total) by mouth admissions nurse before breakfast 200 mcg every other day [...] 07/17/2024 Assessment & Plan (07/18/2024 11:06 AM BIRD RAISER): Chronic problem. Controlled on current metoprolol XL 50mg daily, amlodipine 10mg daily. Hyperlipidemia associated with type 2 diabetes annalise barth 07/17/2024 Assessment & Plan (07/18/2024 11:06 AM BIRD RAISER): Chronic problem. Currently taking Atorvastatin 80mg & Zetia 10mg. Last lipid panel: 05/13/24 LDL=49, TG=98. Hypogonadism in male 12/06/2023 Assessment & Plan (07/18/2024 11:10 AM BIRD RAISER): Chronic problem. Testosterone replacement currently on hold d/t elevated PSA. Has appt w/his urologist (Dr Chang) 08/06/24. Being off the testosterone has caused increased fatigue. Assessment & Plan (12/06/2023 4:16 PM CDT): Chronic, stable Update H&H and PSA Continue AndroGel Type 2 diabetes mellitus wit h hyperglycemia, without long-term current use of insulin 05/31/2023 Assessment & Plan (07/18/2024 11:16 AM BIRD RAISER): Chronic problem. A1c at goal/stable. 6.5% 05/13/24. Current medications: Metformin XR 500mg with dinner daily UTD on labs (see scanned media, completed 05/13/24) UTD on DM eye exam (11/19/23 no [facility]). Discussed with Pablo Culp: Strive for regular [...] 05/31/2023 Assessment & Plan (07/18/2024 11:32 AM BIRD RAISER): H/o papillary thyroid carcinoma with total thyroidectomy 03/07/94. Will check thyroglobulin level. Goal is to keep TSH around 1.0. Verified that he uses mychart. Aware to check results/results letter in [employer]hart. Will contact by phone if needed. 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 Currently taking alternating days of levothyroxine 200mcg & 175mcg. Due to history of papillary thyroid cancer; will keep TSH around 1.0. Aware to take 1st thing in morning, 30-60 minutes before food/drink/other medications. Will update TFT today. Verified that he uses [employer]. Aware to check results/results letter in [employer]. Will contact by phone if needed. Assessment [...] (01/14/2018): Added automatically from request for surgery [id number] Dizziness 11/27/2017 Assessment & Plan (11/27/2017 11:40 AM CDT): Exertional lightheadedness. Cause is unclear. Will obtain 24 hour Holter and Lexiscan. It is possible that finasteride is contributing. Hyperlipidemia with target l ow density lipoprotein (LDL) cholesterol less than 70 mg/dL 01/17/2014 Overview (12/07/2016): HYPERLIPIDEMIA NEC/NOS Assessment & Plan (08/19/2021 6:13 PM BIRD RAISER): Continue high-intensity statin therapy, atorvastatin 80 mg daily. Assessment & Plan (08/13/2020 11:40 AM BIRD RAISER): Continue high-intensity statin therapy. Assessment & Plan [...] FIBRILLATION Assessment & Plan (08/19/2021 6:12 PM BIRD RAISER): Chronic atrial fibrillation, rate controlled. He is not anticoagulated because of previous bleeding and is left atrial appendage has been removed. Assessment & Plan (08/13/2020 11:39 AM BIRD RAISER): Rate controlled. His left atrial appendage was [...] NOS Assessment & Plan (08/19/2021 6:13 PM BIRD RAISER): Blood pressure is normal on his current regimen of amlodipine 10 mg daily and metoprolol succinate 50 mg daily, which he should continue. Assessment & Plan (08/13/2020 11:39 AM BIRD RAISER): Blood pressure is adequately controlled on current [...] on finasteride. Coronary artery disease invo lving [place] coronary artery of [place] heart without angina pectoris 01/17/2014 Overview (12/07/2016): Coronary arteriosclerosis Assessment & Plan (08/19/2021 6:12 PM BIRD RAISER): No symptoms of myocardial ischemia. Continue aspirin and metoprolol succinate 50 mg daily. Assessment & Plan (08/13/2020 11:38 AM BIRD RAISER): No symptoms of chest discomfort. If he [...] Hold systemic anticoagulation (GI bleeding precludes this) Encounters Date Type Department Care Team Description 10/31/2024 11:30 AM BIRD RAISER Office Visit [facility] [address] [place] [address] Pablo Armendariz MD Permanent atrial fibrillation (HCC) (Primary Dx); Coronary artery disease involving [place] coronary artery of [place] heart without angina pectoris; Hx of CABG 10/13/2024 [facility] [address] [place] [address] Zaira Sommers MA from Last 3 Months Immunizations Immunization Administration Dates Next Due Moderna SARS-CoV-2 Monovalent Vaccination (12+ Y RS) 12/25/2020 Surgical History Surgery Date Site/Laterality Comments THYROIDECTOMY Thyroidectomy TONSILLECTOMY Tonsillectomy OTHER SURGICAL HISTORY bilateral arthroscopic knee surgery CORONARY STENT PLACEMENT Coronary Stent Placement PROSTATE BIOPSY Prostate Biopsy CARDIAC CATHETERIZATION KNEE SURGERY REPLACEMENT TOTAL KNEE 03/21/2021 Right CORONARY ARTERY BYPASS GRAFT CABG x2 01/2018 Medical History Medical History Date Comments Hypertension Hyperlipidemia Atrial fibrillation (HCC) Cancer (HCC) 1993 thyroid Coronary artery disease Thyroid disease thyroidectomy Enlarged prostate GI bleed Pleural effusion Seizures (HCC) Stroke (HCC) patient stated n ever had Type 2 diabetes mellitus (HCC) b orderline Bleeding gastric ulcer Family History Medical History Relation Name Comments Coronary artery disease Father José nary Artery Disease; No Known Problems Mother Relation Name Status Comments Father Alive Mother Social History Tobacco Use Types Packs/Day Years [...] on file Legal Sex Male 11:20 AM BIRD RAISER Gender Identity Not on file Sexual Orientation Not on file Obstetrics History Last Filed Vital Signs Vital Sign Reading Time Taken Comments Blood Pressure 122/68 10/31/2024 11:27 AM BIRD RAISER Pulse 73 10/31/2024 11:27 AM BIRD RAISER Temperature 36.8 C (98.2 F) 03/22/2021 11:38 AM CDT Respiratory Rate 18 12/06/2023 11:4 1 AM CDT Oxygen Saturation 96% 10/31/2024 11: 27 AM BIRD RAISER Inhaled Oxygen Concentration - - Weight 108.6 kg (239 lb 6.4 oz) 025 11:27 AM BIRD RAISER Height 180.3 cm (5' 11 ) 10/31/2024 11: 27 AM BIRD RAISER Body Mass Index 33.39 10/31/2024 11:27 AM BIRD RAISER Plan of Treatment Health Maintenance Due Date Last Done Comments Colon Cancer Screening-Colonoscopy 1950 Depression Screening 1950 Hepatitis C Screening 1950 Hepatitis B Screening 1968 Pneumococcal vaccine 65+ (1 of 2 - PCV) 1969 Zoster Vaccine (1 of 2) 2000 Abdominal Aortic Aneurysm (A AA) Screen 2015 Well Visit 65+ 2015 Fall Risk Assessment 03/22/2022 03/22/2021 Covid-19 Vaccine (3 - 2023-2 5 season) 2024 12/25/2020, 11/27/2020 Hemoglobin A1C 11/10/2024 05/13/2024, 04/0 12/2023, 02/22/2021, Additional history exists Dilated Eye Exam 11/18/2024 11/19/2023 Influenza Vaccine (Season Ended) 2025 06/20/2019, 05/29/2018, 06/12/2017 eGFR 05/04/2025 05/04/2024, 05/05, 03/22/2021, Additional history exists Albumin Creatinine Ratio, Urine 05/13/2025 , 05/31/2023 Lipid Panel 05/13/2025 05/13/2024, 10/05, 05/31/2023, Additional history exists Foot Exam 07/18/2025 07/18/2024 DTaP/Tdap/Td Vaccine (2 - Td or Tdap) 06/09/2028 06/09/2018 Prostate Cancer Screening-PSA Discontinued 12/06/2023 Medical Devices Implanted Type Area Dry Starch Operator Device Identifier Shelf Expiration Date Model / Serial / Lot [employer] [id number] Attune S+ Cement Fix Bearing Knee 7 Baseplate Tibial - [id number] Implanted:Qty: 1 on 03/21/2021 by Delroy Pyle MD at [facility] Right: Knee [employer] 01/31/2031 [id number] / / [id number] [employer] [id number] Attune Cemented Posterior Stabilize Knee Right 7 Component - [id number] Implanted:Qty: 1 on 03/21/2021 by Delroy Pyle MD at [facility] Right: Knee [employer] 12/31/2030 [id number] / / [id number] [employer] 6195-1-001 Cement Bone Simplex Gentamicin High Viscosity 40gm - [id number] Implanted:Qty: 1 on 03/21/2021 by Delroy Pyle MD at [facility] Right: Knee [employer] 06/02/2022 6195-1-001 / / [id number] [employer] 6195-1-001 Cement Bone Simplex Gentamicin High Viscosity 40gm - [id number] Implanted:Qty: 1 on 03/21/2021 by Delroy Pyle MD at [facility] Right: Knee [employer] 12/31/2021 6195-1-001 / / [id number] [employer] [id number] Attune 7mm Posterior Stabilize Fix Bearing Knee 7 Insert Tibial - [id number] Implanted:Qty: 1 on 03/21/2021 by Delroy Pyle MD at [facility] Right: Knee [employer] 08/02/2022 [id number] / / [id number] Procedures Procedure Name Priority Date/Time Associated Diagnosis [...] BLOOD ORDERABLES Edit ed Result - Final [facility] * Lipid panel (05/13/2024 9:42 AM CDT) Pathologist [facility] SCRIBED Cholesterol, Total 113 <200 - NA [facility] SCRIBED HDL 46 >=40 - NA [facility] SCRIBED LDL 49 <100 - NA [facility] SCRIBED Triglycerides 98 <150 - NA [facility] Blood 05/13/2024 9:42 AM CDT [facility] Provider MD LAB BLOOD ORDERABLES Edit ed Result - Final Performing Organization Address [place] Co de Phone Number [facility] * (ABNORMAL) [...] 35 Units/L [facility] SCRIBED eGFR in NonAfrican Mauritian 78 >=60 - NA [facility] Blood 05/04/2024 9:42 AM CDT Historical Provider LAB BLOOD ORDERABLES Edit ed Result - Final Performing Organization Address [place]/[facility] Co de Phone Number [facility] * (ABNORMAL) [...] ORDERABLES Final Resul t Performing Organization Address [place] Co de Phone Number TASHI FELIX [address] Department [place] [address] * DIABETES EYE EXAM (11/19/2023 8:11 AM CDT) Historical [facility] Final Result from Last 3 Months or Most Recently Relevant to Health Maintenance Insurance [employer] MEDICARE MEDICARE MEDICARE [facility] MEDICARE AET MEDICARE Advance Directives For more information, please contact: [phone] * Full Code (Latest Code Status on [...] 8:49 AM 01/07/2018 2:16 PM Care Teams Manager Multimedia Relationship Specialty Start Date End Date Beck Jacob MD [address] [address] PCP - General 12/01/16 Delroy Martinez MD [address] [facility] [address] [place] [address] Consulting Physician Neurology 01/16/18 Pablo Mendoza MD [address] [facility] [address] [place] [address] Consulting Physician Thoracic Surgery 01/16/18 Clinic, Urology X. [address] [place] [address] Referring Physician 01/16/18 Laurent Miranda MD [address] [place], [place] [id number] Consulting Physician Pulmonary Disease 02/01/18 Delroy Pyle MD [address] [place] [address] Surgeon Orthopedic Surgery 03/22/21
--- OUTSIDE RECORDS SUMMARY | 2025-01-01 11:52 | XMS_ITS | Clinical Summary ---
Author Organization [facility] Address [address] [place] [address] Phone Care Team Providers Care Bulb Grower Name Role Phone Beck Jacob DO Primary Care Provider Reid Vela DO Unavailable [phone] Allergies No known active allergies Medications atorvastatin (LIPITOR) 80 MG Tablet Take 80 mg by mouth daily. Active carvedilol (COREG) 6.25 MG Tablet Take 6.25 mg by mouth 2 times daily. Active Diltiazem HCl Coated Beads 360 MG CAPSULE SR 24 HR Take 360 mg by mouth daily. Active levothyroxine (SYNTHROID) 200 MCG Tablet Take 200 mcg by mouth daily. Active rivaroxaban (XARELTO) 10 MG Tablet Take 10 mg by mouth daily. Active finasteride (PROSCAR) 5 MG Tablet Take 5 mg by mouth daily. Active Aspirin 81 MG Tablet Take 81 mg by mouth daily. Active Immunizations Immunization Administration Dates Next Due Covid-19, Mrna, Lnp-s, PF, 1 00 mcg/0.5 mL Dose (Moderna) 11/27/2020 Family History Medical History Relation Name Comments Leukemia/Lymphoma Father lymphoma Melanoma Mother Leukemia/Lymphoma Sister leukemia Relation Name Status Comments Father Mother Sister Social History Tobacco Use Types Packs/Day Years Used Date Smoking Tobacco: Former Cigarettes 2 5 0 01/17/2006 - 01/17/2011 Alcohol Use Standard Drinks/Week Comments Yes 0 (1 standard drink = 0.6 oz pur e alcohol) Sex and Gender Information Value Date Recorded Sex Assigned at Not on file Legal Sex Male 10:11 PM CDT Gender Identity Not on file Sexual Orientation Not on file Plan of Treatment Health Maintenance Due Date Last Done Comments Hepatitis C Virus (HCV) Screening 1950 Cologuard 2000 Immunochemical Fecal Occult Blood 2000 Pneumococcal Immunization (50+ years) (1 of 1 - PCV) 2000 Zoster Immunization (1 of 2) 2000 Respiratory Syncytial Virus (RSV) Immunization (Adult) (1 - Risk 60-74 years 1-dose series) 2010 Influenza Immunization (#1) 05/04/202406/03, 05/29/2018, 06/12/2017 SARS-COV-2 Immunization ( season) 2024 03/10/2022, 07/25/2021, 12/25/2020, Additional history exists Colonoscopy 01/12/2026 01/13/2016 Colorectal Cancer Screening 01/12/2026 01/13/2016 DTaP/Tdap/Td Immunization Discontinued 06/09/2018 TdaP Immunization Completed 06/09/2018 Hepatitis B Immunization Aged Out No longer eligible based on patient's age to complete this topic Meningococcal Immunization (ACWY) Aged Out No longer eligible based on patient's age to complete this topic Rotavirus Immunization Aged Out No lo nger eligible based on patient's age to complete this topic Procedures Procedure Name Priority Date/Time Associated Diagnosis Comments COLONOSCOPY Routine 01/13/2016 from Last 3 Months or Most Recently Relevant to Health Maintenance Results * COLONOSCOPY (01/13/2016) Beck Jacob DO PROCEDURE/MINOR SURGICAL OR DERABLES Final Result from Last 3 Months or Most Recently Relevant to Health Maintenance Insurance MEDICARE C BCBS PPO [place] [id number] Care Teams Bulb Grower Relationship Specialty Start Date End Date Beck Jacob DO [address] [place] [address] PCP - General Internal Medicine 01/13/16 Reid Vela DO [address] [place] [address] Consulting Physician Gastroenterology 01/13/16
--- OUTSIDE RECORDS SUMMARY | 2025-01-01 11:52 | XMS_ITS | Clinical Summary ---
Author Organization [facility] Address [facility] [place] [address] Care Team Providers Care Leaf Sticker Name Role Phone Unavailable Primary Care Provider Unavailabl e Social History Tobacco Use Types Packs/Day Years Used Date Smoking Tobacco: Never Assessed Sex and Gender Information Value Date Recorded Sex Assigned at Not on file Legal Sex Male 7:04 PM CDT Gender Identity Not on file Sexual Orientation Not on file Plan of Treatment Health Maintenance Due Date Last Done Comments Colorectal Cancer Screening Colonoscopy (10 Years) 1950 Hepatitis C 1968 DTaP, Tdap and Td Vaccines ( 1 - Tdap) 1969 Pneumococcal Vaccine: 50+ Ye ars (1 of 1 - PCV) 2000 Zoster Vaccines (1 of 2) 2000 COVID-19 Vaccine ( - 2023-2 5 season) 2024 RSV Immunization or 60+ Years (1 - 1-dose 75+ series) 2025 Meningococcal B Vaccine Aged Out No l onger eligible based on patient's age to complete this topic Meningococcal Vaccine Aged Out No fabian gita eligible based on patient's age to complete this topic RSV Immunizations Under 20 Months Aged Out No longer eligible based on patient's age to complete this topic
--- OUTSIDE RECORDS SUMMARY | 2025-01-01 11:52 | XMS_ITS | Clinical Summary ---
Author Organization [facility] Address [address] [place] [address] Care Team Providers Care Oxygen Plant Operator Name Role Phone Beck Jacob DO Primary Care Provider Source Comments [facility],non-owned Affiliates and Associated Physician Practices is amultiple site organization consisting of ambulatory clinics and hospital sitesin [place], [place], [place] and [place]. This disclosure is being madepursuant to the Care Everywhere program and may not contain all information available regarding this patient. Last updated 18.[facility] Allergies No known active allergies Medications * Be aware that medications may not be up to date on this document. Alwaysverify current medications with the patient. lisinopril (PRINIVIL; ZESTRIL) 20 MG tabletIndicatio ns:Hypertension Take 10 mg by mouth 2 times daily. Indications: High Blood Pressure Active levothyroxine (SYNTHROID) 200 MCG tablet Take 200 mcg by mouth every Mon, Tu, Wed, Th, & Fri. Active ferrous gluconate 325 MG tablet Take 325 mg by mouth 2 times daily with breakfast and dinner. Active ezetimibe-simva statin (VYTORIN) 10-80 MG tablet Take 1 Tab by mouth at bedtime. Active esomeprazole (NEXIUM) 20 MG capsule Take 20 mg by mouth daily before breakfast. Active warfarin (COUMADIN) 4 MG tablet Take 4 mg by mouth. Alternates taking 4 mg one day and 4.5 mg the next day. Active aspirin 81 MG chew tablet Take 81 mg by mouth once daily. Active carvedilol (COREG) 6.25 MG tablet Take 6.25 mg by mouth 2 times daily with breakfast and dinner. Active colesevelam (WELCHOL) 625 MG tablet Take 1,875 mg by mouth 2 times daily with breakfast and dinner. Active diltiazem coated beads 24hr (CARDIZEM CD) 360 MG capsule Take 360 mg by mouth once daily. Active Family History Medical History Relation Name Comments Diabetes Mother Relation Name Status Comments Mother Social History Tobacco Use Types Packs/Day Years Used Date Smoking Tobacco: Never Assessed Sex and Gender Information Value Date Recorded Sex Assigned at Not on file Legal Sex Male 6:23 AM NETWORK SUPPORT TECHNICIAN Gender Identity Not on file Sexual Orientation Not on file Last Filed Vital Signs Vital Sign Reading Time Taken Comments Blood Pressure 102/68 10/22/2014 1:25 PM NETWORK SUPPORT TECHNICIAN Pulse 57 10/22/2014 1:25 PM NETWORK SUPPORT TECHNICIAN Temperature 36.8 C (98.2 F) 10/22/2014 1:25 PM NETWORK SUPPORT TECHNICIAN Respiratory Rate 18 03/19/2014 10:2 8 AM CDT Oxygen Saturation 95% 10/22/2014 1:25 PM NETWORK SUPPORT TECHNICIAN Inhaled Oxygen Concentration - - Weight 113.1 kg (249 lb 6.4 oz) 10/22/2014 1:25 PM NETWORK SUPPORT TECHNICIAN Height 180.3 cm (5' 11 ) 03/19/2014 10: 28 AM CDT Body Mass Index 34.78 03/19/2014 10:28 AM CDT Plan of Treatment Health Maintenance Due Date Last Done Comments COLOGUARD (AGES 45-75) - COL ON CA SCREENING 1950 COLON MONITORING 1950 COLONOSCOPY - COLON CA SCREENING 1950 CT COLONOGRAPHY - COLON CA SCREENING 1950 Colorectal Cancer Screening 1950 FIT - COLON CA SCREENING 1950 FLEX SIG - COLON CA SCREENING 1950 HEPATITIS C SCREENING 08/03/1968 DTAP/TDAP/TD VACCINES (1 - Tdap) 1969 PNEUMOCOCCAL VACCINE 50+ (1 of 1 - PCV) 2000 ZOSTER VACCINE (1 of 2) 2000 COVID-19 VACCINE (1 - 2023-2 5 season) 2024 DEPRESSION SCREENING 09/03/2024 INFLUENZA VACCINE (Season Ended) 2025 Respiratory Syncytial Virus (RSV) Vaccine Pt: or over 60 yrs (1 - 1-dose 75+ series) 2025 HEPATITIS B VACCINE Aged Out No longe r eligible based on patient's age to complete this topic HIB VACCINE Aged Out No longer eligi ble based on patient's age to complete this topic HPV VACCINE Aged Out No longer eligi ble based on patient's age to complete this topic MENINGOCOCCAL (Group B) VACC INE SHARED DECISION-MAKING Aged Out No longer eligibl e based on patient's age to complete this topic MENINGOCOCCAL GROUPS A/C/Y/W VACCINE Aged Out No longer eligible b ased on patient's age to complete this topic Insurance [employer] Care Teams Oxygen Plant Operator Relationship Specialty Start Date End Date Beck Jacob DO [address] [facility] [facility] [address] [place] [address] PCP - General 04/19/22
== END 2025-01-01 10:51 | disposition home or self-care (01) ==
PROVIDERS: PCP Internal Medicine; Visit Provider Psychiatry & Neurology Neurology
DX: I65.23 Occlusion and stenosis of bilateral carotid arteries (principal)
CPT/HCPCS: 93880